=== PATIENT | female | born 1985 | race Caucasian/White ===

== ENCOUNTER 2016-03-27 16:30 | Emergency (ER) | payer MEDICAID, OTHER ==
[~2016-03-27] VITALS: Ht 165.1 cm; Wt 75.0 kg
[~2016-03-27 16:30] MED LIST: AMIT10 PO; BUSP5TAB3 PO; CYCL-36 PO; NAPR-576 PO
[2016-03-27 16:32] VITALS: BP 142/69; PULSE 101; RESP 14; TEMP 97.6; O2SAT 98
[2016-03-27] MEDS ORDERED: SODIUM CHLOR 0.9% 1000 ML INJ 1,000 ML IV SCH (18:38)
[2016-03-27] MEDS ORDERED: ONDANSETRON HCL 4 MG/2 ML VIAL IVP ONE (18:45)
[2016-03-27] MEDS ORDERED: SODIUM CHLORIDE 0.9% FLUSH 5 ML FLUSH IVF PRN (18:45)
--- NOTE | 2016-03-27 18:47 | PD ---
HPI Chief Complaint: Abdominal Pain Time Seen by Provider: 18:47 Travel History International Travel<30 days: No Contact w/Intl Traveler<30days: No Traveled to known affect area: No History of Present Illness HPI 31-year-old female with history of cyclic vomiting, followed by psychiatry at the [facility] presents today for evaluation of vomiting and abdominal pain since last evening. Patient states that this is an exacerbation of her cyclic vomiting. She reports no recent illnesses, fever, or chills. She states she does have chills sometimes associated with vomiting. No diarrhea. No chest pain or tightness. She has no other symptoms to report. PFSH Past Medical History Hx Anticoagulant Therapy: No Asthma: No Blood Disorders: No Anxiety: Yes Depression: Yes Heart Rhythm Problems: No Cancer: No Cardiovascular Problems: No High Cholesterol: No Chemotherapy: No Chest Pain: No Congestive Heart Failure: No COPD: No Cerebrovascular Accident: No Diabetes: No Diminished Hearing: No Endocrine: No Gastrointestinal Disorders: Yes (CYCLIC VOMTING SYNDROME 2013. ) GERD: Yes Genitourinary: No Hypertension: No Immune Disorder: No Implanted Vascular Access Dvce: No Insomnia: Yes Musculoskeletal: Yes Neurologic: No Psychiatric: Yes (ptsd) Reproductive: No Respiratory: No Immunizations Current: No Sleep Apnea: No Thyroid Disease: No ?: Not Tubal Ligation: Yes Past Surgical History Body Medical Devices: essure Cholecystectomy: Yes Gynecologic Surgery: Yes (OVARIAN CYST REMOVAL, ABLATION) Hysterectomy: Yes (-2015) Tonsillectomy: Yes Other Surgery: Yes (gallbladder removal, tubal ligation) Social History Alcohol Use: No Tobacco Use: No Substance Use: No Allergies-Medications (Allergen,Severity, Reaction): Coded Allergies: Bactrim (Verified Allergy, Severe, SWELLING, RASH, 03/27/16) Penicillin (Verified Allergy, Intermediate, RASH, 03/27/16) Vicodin (Verified Allergy, Intermediate, RASH, 03/27/16) Compazine (Verified Adverse Reaction, Intermediate, 03/27/16) Reported Meds & Prescriptions Reported Meds & Active Scripts Active Review of Systems Except as stated in HPI: all other systems reviewed are Neg Physical Exam Narrative GENERAL: Well-nourished female patient, lying in bed in no acute distress SKIN: Warm and dry. HEAD: Atraumatic. Normocephalic. EYES: Pupils equal and round. No scleral icterus. No injection or drainage. ENT: No nasal bleeding or discharge. Mucous membranes pink and moist. NECK: Trachea midline. No JVD. CARDIOVASCULAR: Elevated rate and rhythm. No murmur appreciated. RESPIRATORY: No accessory muscle use. Clear to auscultation. Breath sounds equal bilaterally. GASTROINTESTINAL: Abdomen soft, nondistended. Epigastric tenderness to palpation Hepatic and splenic margins not palpable. MUSCULOSKELETAL: No obvious deformities. No clubbing. No cyanosis. No edema. NEUROLOGICAL: Awake and alert. No obvious cranial nerve deficits. Motor grossly within normal limits. Normal speech. Data Data Last Documented VS Vital Signs Date Time Temp Pulse Resp B/P Pulse Ox O2 Delivery O2 Flow Rate FiO2 03/27/16 16:32 97.6 101 14 142/69 98 Room Air Orders Complete Blood Count With Diff (03/27/16 18:38) Comprehensive Metabolic Panel (03/27/16 18:38) Lipase (03/27/16 18:38) Prothrombin Time / Inr (Pt) (03/27/16 18:38) Act Partial Throm Time (Ptt) (03/27/16 18:38) Urinalysis - C+S If Indicated (03/27/16 18:38) Iv Access Insert/Monitor (03/27/16 18:38) Ondansetron Inj (Zofran Inj) (03/27/16 18:45) Sodium Chlor 0.9% 1000 Ml Inj (Ns 1000 M (03/27/16 18:38) Sodium Chloride 0.9% Flush (Ns Flush) (03/27/16 18:45) Ed Urine Pregnancytest Poc (03/27/16 18:38) Metoclopramide Inj (Reglan Inj) (03/27/16 19:00) Diphenhydramine Inj (Benadryl Inj) (03/27/16 19:00) Cath For Specimen (03/27/16 18:54) Labs Laboratory Tests Test 03/27/16 19:15 White Blood Count 22.1 TH/MM3 Red Blood Count 4.39 MIL/MM3 Hemoglobin 13.8 GM/DL Hematocrit 39.8 % Mean Corpuscular Volume 90.6 FL Mean Corpuscular Hemoglobin 31.5 PG Mean Corpuscular Hemoglobin 34.8 % Concent Red Cell Distribution Width 13.1 % Platelet Count 315 TH/MM3 Mean Platelet Volume 8.1 FL Neutrophils (%) (Auto) 91.3 % Lymphocytes (%) (Auto) 5.1 % Monocytes (%) (Auto) 3.5 % Eosinophils (%) (Auto) 0.0 % Basophils (%) (Auto) 0.1 % Neutrophils # (Auto) 20.2 TH/MM3 Lymphocytes # (Auto) 1.1 TH/MM3 Monocytes # (Auto) 0.8 TH/MM3 Eosinophils # (Auto) 0.0 TH/MM3 Basophils # (Auto) 0.0 TH/MM3 CBC Comment DIFF FINAL Differential Comment Prothrombin Time 10.9 SEC Prothromb Time International 1.0 RATIO Ratio Activated Partial 23.8 SEC Thromboplast Time Sodium Level 137 MEQ/L Potassium Level 3.8 MEQ/L Chloride Level 103 MEQ/L Carbon Dioxide Level 25.5 MEQ/L Anion Gap 9 MEQ/L Blood Urea Nitrogen 12 MG/DL Creatinine 0.89 MG/DL Estimat Glomerular Filtration 74 ML/MIN Rate Random Glucose 154 MG/DL Calcium Level 8.5 MG/DL Total Bilirubin 0.4 MG/DL Aspartate Amino Transf 11 U/L (AST/SGOT) Alanine Aminotransferase 24 U/L (ALT/SGPT) Alkaline Phosphatase 60 U/L Total Protein 8.1 GM/DL Albumin 4.3 GM/DL Lipase 56 U/L [facility] Medical Decision Making Medical Screen Exam Complete: Yes Emergency Medical Condition: Yes Medical Record Reviewed: Yes Differential Diagnosis Cyclic vomiting versus gastritis versus gastroparesis Narrative Course 31-year-old female presents to the emergency department for evaluation. Patient appears overall well and without distress. She does have a slightly elevated heart rate and epigastric tenderness to palpation. This would be consistent with cyclic vomiting. Patient is given IV normal saline bolus, Zofran, Reglan, and Benadryl here in the emergency department in triage. Lab work is ordered. 2020 following medication administration, the patient has not been vomiting here in the triage area. CBC is with leukocytosis of 22,000 however this is likely secondary to vomiting. CMP and lipase are without acute concern. Urinalysis not yet been collected. I discussed with the patient the importance of following up outpatient with her psychiatrist in the patient begins to tell me that her neck and back hurts and she needs something additional. She requests Ativan and/or Dilaudid by name. She states that she typically gets these in the emergency department. Upon review of her chart she has been giving morphine, Dilaudid, or Ativan when she has presented with these similar symptoms. Been in triage and on a monitor, the patient will not begin these medications. She will be transferred to a medical bed where care will be assumed by that medical provider and further intervention and disposition determined. Condition: Stable MelizaKaciRamyadaniel INIGUEZ Mar 27, 2016 18:47
[2016-03-27] MEDS ORDERED: diphenhydrAMINE HCL 50 MG/ML VIAL IV PUSH ONE (19:00)
[2016-03-27] MEDS ORDERED: METOCLOPRAMIDE HCL 10 MG/2 ML VIAL IV PUSH ONE (19:00)
[2016-03-27 19:38] LABS: AUTOMATED NEUTROPHIL # 20.2 TH/MM3 (1.8-7.7); BASOPHIL % 0.1 % (0.0-2.0); HEMATOCRIT 39.8 % (35.0-46.0); HEMO FLAGS DIFF FINAL; LYMPH % 5.1 % (9.0-44.0); LYMPHOCYTE # 1.1 TH/MM3 (1.0-4.8); MEAN CELL VOLUME 90.6 FL (80.0-100.0); MEAN CORPUSCULAR HEMOGLOBIN 31.5 PG (27.0-34.0); MEAN CORPUSCULAR HGB CONC 34.8 % (32.0-36.0); MONO % 3.5 % (0.0-8.0); NEUT % 91.3 % (16.0-70.0); PLATELET COUNT 315 TH/MM3 (150-450); RED BLOOD COUNT 4.39 MIL/MM3 (4.00-5.30); RED CELL DISTRIBUTION WIDTH 13.1 % (11.6-17.2); WHITE BLOOD COUNT 22.1 TH/MM3 (4.0-11.0)
[2016-03-27 19:48] LABS: APTT (PATIENT) 23.8 SEC (24.3-30.1); PROTHROMBIN TIME - PATIENT 10.9 SEC (9.8-11.6)
[2016-03-27 20:02] LABS: ANION GAP 9 MEQ/L (5-15); AST (GOT) 11 U/L (15-37); BICARBONATE 25.5 MEQ/L (21.0-32.0); BLOOD UREA NITROGEN 12 MG/DL (7-18); CHLORIDE 103 MEQ/L (98-107); GLOMERULAR FILTRATION RATE 74 ML/MIN (>89); POTASSIUM 3.8 MEQ/L (3.5-5.1); SODIUM (NA) 137 MEQ/L (136-145)
[2016-03-27 20:08] LABS: ALKALINE PHOSPHATASE 60 U/L (45-117); ALT (GPT) 24 U/L (10-53); TOTAL BILIRUBIN ADULT 0.4 MG/DL (0.2-1.0)
[2016-03-27 21:27] LABS: BACTERIA, URINE RARE /hpf; BLOOD, URINE SMALL (NEG); COMMENT (UR) CULT NOT INDICATED; CULTURE IF INDICATED CULT NOT INDICATED; GLUCOSE,URINE 300 mg/dL (NEG); HYALINE CAST, URINE 1 /lpf (RARE); KETONE, URINE 40 mg/dL (NEG); MUCUS URINE MANY /lpf (OCC); NITRITE,URINE NEG (NEG); SQUAMOUS EPITHELIAL CELL URINE 3 /hpf (0-5); URINE COLOR YELLOW (YELLW/STRAW)
[2016-03-27] MEDS ORDERED: KETOROLAC TROMETHAMINE 30 MG/ML (IVP) VIAL IV PUSH ONE (22:15)
[2016-03-27] MEDS ORDERED: ONDANSETRON HCL 4 MG/2 ML VIAL IV PUSH ONE (22:15)
--- NOTE | 2016-03-27 22:15 | PD ---
Data Data Last Documented VS Vital Signs Date Time Temp Pulse Resp B/P Pulse Ox O2 Delivery O2 Flow Rate FiO2 03/27/16 16:32 97.6 101 14 142/69 98 Room Air Orders Complete Blood Count With Diff (03/27/16 18:38) Comprehensive Metabolic Panel (03/27/16 18:38) Lipase (03/27/16 18:38) Prothrombin Time / Inr (Pt) (03/27/16 18:38) Act Partial Throm Time (Ptt) (03/27/16 18:38) Urinalysis - C+S If Indicated (03/27/16 18:38) Iv Access Insert/Monitor (03/27/16 18:38) Ondansetron Inj (Zofran Inj) (03/27/16 18:45) Sodium Chlor 0.9% 1000 Ml Inj (Ns 1000 M (03/27/16 18:38) Sodium Chloride 0.9% Flush (Ns Flush) (03/27/16 18:45) Ed Urine Pregnancytest Poc (03/27/16 18:38) Metoclopramide Inj (Reglan Inj) (03/27/16 19:00) Diphenhydramine Inj (Benadryl Inj) (03/27/16 19:00) Cath For Specimen (03/27/16 18:54) Ct Abd/Pel W Iv Contrast(Rout) (03/27/16 ) Ketorolac Inj (Toradol Inj) (03/27/16 22:15) Ondansetron Inj (Zofran Inj) (03/27/16 22:15) Iohexol 350 Inj (Omnipaque 350 Inj) (03/27/16 23:23) Lorazepam Inj (Ativan Inj) (03/28/16 00:15) Lorazepam Inj (Ativan Inj) (03/28/16 00:15) Labs Laboratory Tests Test 03/27/16 03/27/16 19:15 21:00 White Blood Count 22.1 TH/MM3 Red Blood Count 4.39 MIL/MM3 Hemoglobin 13.8 GM/DL Hematocrit 39.8 % Mean Corpuscular Volume 90.6 FL Mean Corpuscular Hemoglobin 31.5 PG Mean Corpuscular Hemoglobin 34.8 % Concent Red Cell Distribution Width 13.1 % Platelet Count 315 TH/MM3 Mean Platelet Volume 8.1 FL Neutrophils (%) (Auto) 91.3 % Lymphocytes (%) (Auto) 5.1 % Monocytes (%) (Auto) 3.5 % Eosinophils (%) (Auto) 0.0 % Basophils (%) (Auto) 0.1 % Neutrophils # (Auto) 20.2 TH/MM3 Lymphocytes # (Auto) 1.1 TH/MM3 Monocytes # (Auto) 0.8 TH/MM3 Eosinophils # (Auto) 0.0 TH/MM3 Basophils # (Auto) 0.0 TH/MM3 CBC Comment DIFF FINAL Differential Comment Prothrombin Time 10.9 SEC Prothromb Time International 1.0 RATIO Ratio Activated Partial 23.8 SEC Thromboplast Time Sodium Level 137 MEQ/L Potassium Level 3.8 MEQ/L Chloride Level 103 MEQ/L Carbon Dioxide Level 25.5 MEQ/L Anion Gap 9 MEQ/L Blood Urea Nitrogen 12 MG/DL Creatinine 0.89 MG/DL Estimat Glomerular Filtration 74 ML/MIN Rate Random Glucose 154 MG/DL Calcium Level 8.5 MG/DL Total Bilirubin 0.4 MG/DL Aspartate Amino Transf 11 U/L (AST/SGOT) Alanine Aminotransferase 24 U/L (ALT/SGPT) Alkaline Phosphatase 60 U/L Total Protein 8.1 GM/DL Albumin 4.3 GM/DL Lipase 56 U/L Urine Color YELLOW Urine Turbidity CLEAR Urine pH 7.0 Urine Specific [place] 1.023 Urine Protein 30 mg/dL Urine Glucose (UA) 300 mg/dL Urine Ketones 40 mg/dL Urine Occult Blood SMALL Urine Nitrite NEG Urine Bilirubin NEG Urine Urobilinogen LESS THAN 2.0 MG/DL Urine Leukocyte Esterase NEG Urine RBC 20 /hpf Urine WBC 1 /hpf Urine Squamous Epithelial 3 /hpf Cells Urine Bacteria RARE /hpf Urine Hyaline Casts 1 /lpf Urine Mucus MANY /lpf Microscopic Urinalysis Comment CULT NOT INDICATED MDM Supervised Visit with EUN: Yes Narrative Course Patient roomed in ED. Continues to request narcotics for pain but she appears comfortable and is sleeping soundly. She has a benign abdomen exam. ELevated WBC indicates CT examination which is negative. Patient revisited and again, sleeping, appears comfortable. States nauseated but has not had any emesis nor wretching in ED. SHe is given ativan. Opiates are not indicated given that she can sleep through pain. Discussed need to follow up with her regular providers. Diagnosis Primary Impression: Abdominal pain Qualified Code: R10.84 - Generalized abdominal pain Disposition: 01 DISCHARGE HOME Condition: Stable Brody Gonzales MD Mar 27, 2016 22:15
[2016-03-27] MEDS ORDERED: IOHEXOL 350 MG/ML 10 ML VIAL (for RAD DIAG) IV ONE (23:23)
--- NOTE | 2016-03-27 23:54 | RADRPT ---
EXAM DATE/TIME: 03/27/2016 23:15 [facility] COMPARISON: CT ABDOMEN & PELVIS W CONTRAST, March 02, 2015, 13:04. INDICATIONS : Diffused abdominal pain along with nausea for one day. IV CONTRAST: 90 cc Omnipaque 350 (iohexol) IV ORAL CONTRAST: No oral contrast ingested. RADIATION DOSE: 7.29 CTDIvol (mGy) MEDICAL HISTORY : None SURGICAL HISTORY : Hysterectomy. Hysterectomy. ENCOUNTER: Initial ACUITY: 1 day PAIN SCALE: 9/10 LOCATION: abdomen TECHNIQUE: Volumetric scanning of the abdomen and pelvis was performed. Using automated exposure control and ad justment of the mA and/or kV according to patient size, radiation dose was kept as low as reasonably achievable to obtain optimal diagnostic quality images. FINDINGS: LOWER LUNGS: The visualized lower lungs are clear. LIVER: Homogeneous density without lesion. There is no dilation of the biliary tree. Gallbladder surgically absent.. SPLEEN: Normal size without lesion. PANCREAS: Within normal limits. KIDNEYS: Normal in size and shape. There is no mass, stone or hydronephrosis. ADRENAL GLANDS: Within normal limits. VASCULAR: There is no aortic aneurysm. BOWEL/MESENTERY: The stomach, small bowel, and colon demonstrate no acute abnormality. There is no free intraperitone al air or fluid. ABDOMINAL WALL: Within normal limits. RETROPERITONEUM: There is no lymphadenopathy. BLADDER: No wall thickening or mass. REPRODUCTIVE: Uterus is surgically absent. Small volume of nonloculated free pelvic fluid, nonspecific. INGUINAL: There is no lymphadenopathy or hernia. MUSCULOSKELETAL: Within normal limits for patient age. CONCLUSION: Nonloculated pelvic fluid. Otherwise unremarkable Al Ledezma MD on March 27, 2016 at 23:45 Board Certified Radiologist. This report was verified electronically.
[2016-03-28] MEDS ORDERED: LORazepam 2 MG/ML VIAL IV PUSH ONE (00:15)
[2016-03-28] MEDS ORDERED: LORazepam 2 MG/ML VIAL IM ONE (00:15)
[2016-03-29] MEDS ORDERED: BUSP5TAB PO (11:27)
[2016-03-29] MEDS ORDERED: ZOFR4TAB PO (11:27)
[2016-03-29] MEDS ORDERED: AMIT10TA6 PO (11:27)
[2016-03-29] MEDS ORDERED: AMIT50TA3 PO (18:25)
[2016-03-29] MEDS ORDERED: CYCL1TAB29 PO (19:41)
== END 2016-03-28 00:31 | disposition home or self-care (01) ==
LOC: NETRI 16:30 → NEPA 03-28 00:31
DX: R10.84 Generalized abdominal pain (principal); G43.A0 Cyclical vomiting, in migraine, not intractable; K21.9 Gastro-esophageal reflux disease without esophagitis
CPT/HCPCS: 74177; 80053; 81001; 83690; 84703; 85025; 85610; 85730; 96361; 96372; 96374; 96375; 96376; 99284; J1200; J1885; J2060; J2405; J2765; J7030; Q9967

== ENCOUNTER 2016-03-29 11:00 | Observation (INO) | payer MEDICAID, OTHER ==
[2016-03-29] VITALS (10 sets, daily range): BP systolic 104–135; BP diastolic 56–81; PULSE 73–99; RESP 16–18; TEMP 97.9–100.5; O2SAT 96–100
[~2016-03-29] VITALS: Ht 157.5 cm; Wt 70.2 kg
[2016-03-29] MEDS ORDERED: SODIUM CHLOR 0.9% 1000 ML INJ 1,000 ML IV SCH (11:22)
[2016-03-29] MEDS ORDERED: BUSP5TAB PO (11:27)
[2016-03-29] MEDS ORDERED: ZOFR4TAB PO (11:27)
[2016-03-29] MEDS ORDERED: AMIT10TA6 PO (11:27)
[2016-03-29] MEDS ORDERED: KETOROLAC TROMETHAMINE 60 MG/2 ML (IM) VIAL IM ONE (11:30)
[2016-03-29] MEDS ORDERED: PROMETHAZINE INJ 25 MG/ML VIAL IM ONE (11:30)
[2016-03-29] MEDS ORDERED: diphenhydrAMINE HCL 50 MG/ML VIAL IV PUSH ONE (11:30)
[2016-03-29] MEDS ORDERED: SODIUM CHLORIDE 0.9% FLUSH 5 ML FLUSH IVF PRN (11:30)
[2016-03-29 11:40] LABS: AUTOMATED NEUTROPHIL # 12.8 TH/MM3 (1.8-7.7); BASOPHIL % 0.3 % (0.0-2.0); EOSINOPHIL % 0.1 % (0.0-4.0); HEMATOCRIT 40.2 % (35.0-46.0); HEMO FLAGS DIFF FINAL; LYMPH % 9.1 % (9.0-44.0); LYMPHOCYTE # 1.3 TH/MM3 (1.0-4.8); MEAN CELL VOLUME 90.8 FL (80.0-100.0); MEAN CORPUSCULAR HEMOGLOBIN 30.9 PG (27.0-34.0); MONO % 2.2 % (0.0-8.0); NEUT % 88.3 % (16.0-70.0); PLATELET COUNT 310 TH/MM3 (150-450); RED BLOOD COUNT 4.43 MIL/MM3 (4.00-5.30); RED CELL DISTRIBUTION WIDTH 12.3 % (11.6-17.2); WHITE BLOOD COUNT 14.4 TH/MM3 (4.0-11.0)
[2016-03-29 11:47] LABS: CHLORIDE 105 MEQ/L (98-107); POTASSIUM 3.7 MEQ/L (3.5-5.1); SODIUM (NA) 141 MEQ/L (136-145)
[2016-03-29 11:51] LABS: ANION GAP 8 MEQ/L (5-15); BICARBONATE 27.9 MEQ/L (21.0-32.0); BLOOD UREA NITROGEN 19 MG/DL (7-18)
[2016-03-29 11:54] LABS: ALT (GPT) 22 U/L (10-53); AST (GOT) 16 U/L (15-37); GLOMERULAR FILTRATION RATE 76 ML/MIN (>89)
[2016-03-29 11:56] LABS: TOTAL BILIRUBIN ADULT 0.5 MG/DL (0.2-1.0)
[2016-03-29 11:57] LABS: ALKALINE PHOSPHATASE 52 U/L (45-117)
[2016-03-29] MEDS ORDERED: METOCLOPRAMIDE HCL 10 MG/2 ML VIAL IV PUSH ONE (12:30)
--- NOTE | 2016-03-29 13:26 | PD ---
HPI Chief Complaint: Abdominal Pain Time Seen by Provider: 11:19 Travel History International Travel<30 days: No Contact w/Intl Traveler<30days: No Traveled to known affect area: No History of Present Illness HPI Patient 31-year-old female presents emergency department for evaluation of nausea and vomiting. This is her second interaction with me this week. Patient has a history of gastroparesis and cyclical vomiting syndrome. She has been trying to follow-up with her primary care physician with the earliest appointment is for 2 weeks. Denies any fever. Does also endorses loose stools. PFSH Past Medical History Hx Anticoagulant Therapy: No Asthma: No Blood Disorders: No Anxiety: Yes Depression: Yes Heart Rhythm Problems: No Cancer: No Cardiovascular Problems: No High Cholesterol: No Chemotherapy: No Chest Pain: No Congestive Heart Failure: No COPD: No Cerebrovascular Accident: No Diabetes: No Diminished Hearing: No Endocrine: No Gastrointestinal Disorders: Yes (CYCLIC VOMTING SYNDROME 2013, GASTROPARESIS) GERD: Yes Genitourinary: No Hypertension: No Immune Disorder: No Implanted Vascular Access Dvce: No Insomnia: Yes Musculoskeletal: Yes Neurologic: No Psychiatric: Yes (ptsd) Reproductive: No Respiratory: No Immunizations Current: No Sleep Apnea: No Thyroid Disease: No Tetanus Vaccination: Unknown Influenza Vaccination: Yes ?: Not Tubal Ligation: Yes Past Surgical History Body Medical Devices: essure Cholecystectomy: Yes Gynecologic Surgery: Yes (OVARIAN CYST REMOVAL, ABLATION) Hysterectomy: Yes Tonsillectomy: Yes Other Surgery: Yes (gallbladder removal, tubal ligation) Social History Alcohol Use: No Tobacco Use: No Substance Use: Yes (MARIJUANA) Allergies-Medications (Allergen,Severity, Reaction): Coded Allergies: Bactrim (Verified Allergy, Severe, SWELLING, RASH, 03/29/16) Penicillin (Verified Allergy, Intermediate, RASH, 03/29/16) Vicodin (Verified Allergy, Intermediate, RASH, 03/29/16) Compazine (Verified Adverse Reaction, Intermediate, 03/29/16) Reported Meds & Prescriptions Reported Meds & Active Scripts Active Reported Flexeril (Cyclobenzaprine HCl) 10 Mg Tab 10 Mg PO BID Amitriptyline (Amitriptyline HCl) 50 Mg Tab 100 Mg PO HS Buspirone (Buspirone HCl) 5 Mg Tab 15 Mg PO BID Zofran (Ondansetron HCl) 4 Mg Tab 4 Mg PO Q6HR PRN Physical Exam Narrative GENERAL: Well-developed well-nourished no apparent distress SKIN: Warm and dry. HEAD: Atraumatic. Normocephalic. EYES: Pupils equal and round. No scleral icterus. No injection or drainage. ENT: No nasal bleeding or discharge. Mucous membranes pink and moist. NECK: Trachea midline. No JVD. CARDIOVASCULAR: Regular rate and rhythm. No murmur appreciated. RESPIRATORY: No accessory muscle use. Clear to auscultation. Breath sounds equal bilaterally. GASTROINTESTINAL: Abdomen soft, non-tender, nondistended. Hepatic and splenic margins not palpable. MUSCULOSKELETAL: No obvious deformities. No clubbing. No cyanosis. No edema. NEUROLOGICAL: Awake and alert. No obvious cranial nerve deficits. Motor grossly within normal limits. Normal speech. PSYCHIATRIC: Appropriate mood and affect; insight and judgment normal. Data Data Last Documented VS Vital Signs Date Time Temp Pulse Resp B/P Pulse Ox O2 Delivery O2 Flow Rate FiO2 03/29/16 12:54 16 03/29/16 12:39 84 121/67 100 Room Air 03/29/16 11:11 97.9 Orders Complete Blood Count With Diff (03/29/16 11:22) Comprehensive Metabolic Panel (03/29/16 11:22) Lactic Acid (03/29/16 11:22) Iv Access Insert/Monitor (03/29/16 11:22) Ecg Monitoring (03/29/16 11:22) Oximetry (03/29/16 11:22) Sodium Chlor 0.9% 1000 Ml Inj (Ns 1000 M (03/29/16 11:22) Sodium Chloride 0.9% Flush (Ns Flush) (03/29/16 11:30) Ketorolac Inj (Toradol Inj) (03/29/16 11:30) Promethazine Inj (Phenergan Inj) (03/29/16 11:30) Diphenhydramine Inj (Benadryl Inj) (03/29/16 11:30) Metoclopramide Inj (Reglan Inj) (03/29/16 12:30) Metoclopramide Inj (Reglan Inj) (03/29/16 16:00) Place In Observation (03/29/16 ) Vital Signs (Adult) Q4H (03/29/16 13:35) Activity Oob With Assistance (03/29/16 13:35) Diet Clear Liquid (03/29/16 Lunch) Sodium Chlor 0.9% 1000 Ml Inj (Ns 1000 M (03/29/16 13:35) Sodium Chloride 0.9% Flush (Ns Flush) (03/29/16 13:45) Sodium Chloride 0.9% Flush (Ns Flush) (03/29/16 21:00) Acetaminophen (Tylenol) (03/29/16 13:45) Ondansetron Inj (Zofran Inj) (03/29/16 13:45) Magnesium Hydroxide Liq (Milk Of Magnesi (03/29/16 13:45) Basic Metabolic Panel (Bmp) (03/30/16 06:00) Complete Blood Count With Diff (03/30/16 06:00) Scd Bilateral/Knee High BYRON.BID (03/29/16 13:35) Carlos Bilateral/Knee High BYRON.QSHIFT (03/29/16 13:35) Naloxone Inj (Narcan Inj) (03/29/16 13:45) Admit Order (Ed Use Only) (03/29/16 ) Labs Laboratory Tests Test 03/29/16 11:32 White Blood Count 14.4 TH/MM3 Red Blood Count 4.43 MIL/MM3 Hemoglobin 13.7 GM/DL Hematocrit 40.2 % Mean Corpuscular Volume 90.8 FL Mean Corpuscular Hemoglobin 30.9 PG Mean Corpuscular Hemoglobin 34.0 % Concent Red Cell Distribution Width 12.3 % Platelet Count 310 TH/MM3 Mean Platelet Volume 8.0 FL Neutrophils (%) (Auto) 88.3 % Lymphocytes (%) (Auto) 9.1 % Monocytes (%) (Auto) 2.2 % Eosinophils (%) (Auto) 0.1 % Basophils (%) (Auto) 0.3 % Neutrophils # (Auto) 12.8 TH/MM3 Lymphocytes # (Auto) 1.3 TH/MM3 Monocytes # (Auto) 0.3 TH/MM3 Eosinophils # (Auto) 0.0 TH/MM3 Basophils # (Auto) 0.0 TH/MM3 CBC Comment DIFF FINAL Differential Comment Sodium Level 141 MEQ/L Potassium Level 3.7 MEQ/L Chloride Level 105 MEQ/L Carbon Dioxide Level 27.9 MEQ/L Anion Gap 8 MEQ/L Blood Urea Nitrogen 19 MG/DL Creatinine 0.87 MG/DL Estimat Glomerular Filtration 76 ML/MIN Rate Random Glucose 154 MG/DL Lactic Acid Level 1.7 mmol/L Calcium Level 8.5 MG/DL Total Bilirubin 0.5 MG/DL Aspartate Amino Transf 16 U/L (AST/SGOT) Alanine Aminotransferase 22 U/L (ALT/SGPT) Alkaline Phosphatase 52 U/L Total Protein 7.7 GM/DL Albumin 4.2 GM/DL MDM Medical Decision Making Medical Screen Exam Complete: Yes Emergency Medical Condition: Yes Differential Diagnosis Chronic abdominal pain, gastritis, gastroparesis, cyclical vomiting syndrome. Narrative Course Patient's 31-year-old female presents to emergency department with nausea vomiting and abdominal cramping. Patient states she has a history of gastroparesis as well as cyclical vomiting symptoms. She was seen by me 3 days ago had an elevated white blood cell count 22,[address] scan was performed that time which was negative. Today her white blood cell count is down to 14. She states the only thing that works for her is Ativan and Dilaudid. She did drive herself here to the emergency department today contraindicating their use here not to mention that Dilaudid and other opiates will worsen gastroparesis. She does have normal active bowel sounds. She was given Reglan Benadryl Phenergan Zofran and fluids and still is having some mild dry heaves. Discussed with her that with her chronic conditions we could consider admitting her to the hospital for additional fluids. She was informed that Dilaudid will continue to be contraindicated and she understands this. Diagnosis Primary Impression: Intractable nausea and vomiting Qualified Code: G43.A1 - Intractable cyclical vomiting with nausea Admitting Information Admitting Physician Requests: Observation Condition: Stable Brody Gonzales MD Mar 29, 2016 13:26
[2016-03-29] MEDS ORDERED: ACETAMINOPHEN 325 MG TAB PO PRN (13:45)
[2016-03-29] MEDS ORDERED: MAGNESIUM HYDROXIDE SUSP 30 ML CUP PO PRN (13:45)
[2016-03-29] MEDS ORDERED: NALOXONE HCL 0.4 MG/ML AMP IV PRN (13:45)
[2016-03-29] MEDS ORDERED: SODIUM CHLORIDE 0.9% FLUSH 5 ML FLUSH FLUSH PRN (13:45)
[2016-03-29] MEDS: SODIUM CHLOR 0.9% 1000 ML INJ 1,000 ML IV SCH ×2 (14:01→23:25)
[2016-03-29] MEDS: METOCLOPRAMIDE HCL 10 MG/2 ML VIAL IV SCH ×2 (15:42→23:25)
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
[2016-03-29] MEDS ORDERED: AMIT50TA3 PO (18:25)
[2016-03-29] MEDS ORDERED: diphenhydrAMINE HCL 25 MG CAP PO PRN (18:45)
[2016-03-29] MEDS: ONDANSETRON HCL 4 MG/2 ML VIAL IVP PRN (19:06)
[2016-03-29] MEDS: KETOROLAC TROMETHAMINE 60 MG/2 ML (IM) VIAL IM PRN (19:06)
[2016-03-29] MEDS ORDERED: CYCL1TAB29 PO (19:41)
[2016-03-29] MEDS: SODIUM CHLORIDE 0.9% FLUSH 5 ML FLUSH FLUSH SCH (23:25)
[2016-03-30] VITALS: BP 106/64; PULSE 88; RESP 18; TEMP 98.5; O2SAT 90
[2016-03-30] MEDS: ONDANSETRON HCL 4 MG/2 ML VIAL IVP PRN (00:27)
[2016-03-30] MEDS: KETOROLAC TROMETHAMINE 60 MG/2 ML (IM) VIAL IM PRN (00:29)
[2016-03-30] MEDS: SODIUM CHLOR 0.9% 1000 ML INJ 1,000 ML IV SCH (04:36)
[2016-03-30] MEDS: METOCLOPRAMIDE HCL 10 MG/2 ML VIAL IV SCH ×2 (05:53→10:16)
[2016-03-30 06:15] LABS: AUTOMATED NEUTROPHIL # 10.4 TH/MM3 (1.8-7.7); BASOPHIL % 0.2 % (0.0-2.0); EOSINOPHIL # 0.1 TH/MM3 (0-0.4); EOSINOPHIL % 0.4 % (0.0-4.0); HEMATOCRIT 38.8 % (35.0-46.0); LYMPH % 18.7 % (9.0-44.0); LYMPHOCYTE # 2.6 TH/MM3 (1.0-4.8); MEAN CELL VOLUME 91.4 FL (80.0-100.0); MEAN CORPUSCULAR HEMOGLOBIN 31.5 PG (27.0-34.0); MEAN CORPUSCULAR HGB CONC 34.4 % (32.0-36.0); MONO % 6.5 % (0.0-8.0); NEUT % 74.2 % (16.0-70.0); PLATELET COUNT 262 TH/MM3 (150-450); RED BLOOD COUNT 4.24 MIL/MM3 (4.00-5.30); RED CELL DISTRIBUTION WIDTH 12.3 % (11.6-17.2)
[2016-03-30 06:17] LABS: HEMO FLAGS DIFF FINAL
[2016-03-30 06:21] LABS: POTASSIUM 3.1 MEQ/L (3.5-5.1)
[2016-03-30 06:24] LABS: BICARBONATE 28.8 MEQ/L (21.0-32.0)
[2016-03-30 08:00] VITALS: BP 116/71; PULSE 80; RESP 18; TEMP 98.9; O2SAT 97
[2016-03-30] MEDS ORDERED: busPIRone HCL 5 MG TAB PO SCH (09:00)
--- NOTE | 2016-03-30 09:55 | HHI.PR ---
Subjective Remarks Patient seen and examined today with Dr. Pack. Patient states that she is feeling much better. Patient wants to go home. Objective Vitals Vital Signs Date Time Temp Pulse Resp B/P Pulse Ox O2 Delivery O2 Flow Rate FiO2 03/30/16 00:00 98.5 88 18 106/64 90 03/29/16 21:09 100.5 73 18 135/81 100 03/29/16 20:21 80 20 107/66 100 03/29/16 19:21 18 03/29/16 19:15 99.5 89 18 123/61 97 Room Air 03/29/16 17:46 16 03/29/16 17:46 98.5 99 16 110/65 97 Room Air 03/29/16 15:56 98.8 03/29/16 15:24 16 03/29/16 15:22 76 16 104/56 96 Room Air 03/29/16 14:02 80 16 113/67 98 Room Air 03/29/16 12:54 16 03/29/16 12:39 84 16 121/67 100 Room Air 03/29/16 12:01 100 Room Air 03/29/16 11:28 18 03/29/16 11:11 97.9 83 18 128/80 100 I/O 03/29/16 03/29/16 03/29/16 03/30/16 03/30/16 03/30/16 07:00 15:00 23:00 07:00 15:00 23:00 Intake Total 990 ml 60 ml 526 ml Balance 990 ml 60 ml 526 ml Intake Oral 60 ml IV Total 990 ml 526 ml # Voids 1 2 5 # Bowel Movements 0 0 Result Diagram: 03/30/16 0510 03/30/16 0510 Objective Remarks GENERAL: Well-developed, well-nourished, in no acute distress. alert and orientated HEENT: Head is normocephalic without any lesions or masses noted. Facial features are symmetric. Eyes: Pextraocular muscles are intact. Conjunctivae were clear. NECK: Supple without any masses. Trachea midline no deviation. No JVD, CARDIAC: Regular rhythm, regular rate. S1/S2 are heard. No murmurs gallops or rubs. LUNGS: Clear to auscultation bilaterally. No wheeze, rhonchi or rales. No use of accessory muscles on inspiration or expiration. ABDOMEN: Soft, nontender. Nondistended. Bowel sounds heard in all 4 quadrants. No organomegaly or masses. Negative rebound, negative guarding EXTREMITIES: No edema, pulses are equal bilaterally. No cyanosis or clubbing NEUROLOGY: Mood and affect appear appropriate. Cranial nerves II through XII grossly intact. Moving all extremities, speech is clear Urinary Catheter: No Vascular Central Line Catheter: No A/P Assessment and Plan Cyclic vomiting syndrome, resolved Continue Zofran as needed for nausea vomiting Reglan 5 mg before meals and at bedtime IV scheduled Continue IV fluids Patient counseled on discontinuation of marijuana Advance diet as tolerated Toradol as needed for pain Leukocytosis, improving Continue monitor CBC Prerenal azotemia, resolved Appears to have chronic kidney disease stage II by review of medical records DVT prevention Sequential compression devices Written by Carlin Longoria PA-C, acting as scribe for Dr. Pack on 03/30/16 at 1000. The documentation accurately reflects the work and decisions performed face-to- face by Dr. Pack on 03/30/16 at 1000. Discharge Planning Discharge home in stable condition Activity: Ad amna. Diet: Regular diet Medications per medication reconciliation Follow-up primary medical doctor in one week Carlin Longoria Mar 30, 2016 09:55
--- NOTE | 2016-03-30 09:57 | HHI.DCPOC ---
Discharge Care Plan Diagnosis: (1) Cyclic vomiting syndrome Goals to Promote Your Health * To prevent worsening of your condition and complications * To maintain your health at the optimal level Directions to Meet Your Goals Take your medications as prescribed Follow your dietary instruction Follow activity as directed Keep your appointments as scheduled Take your immunizations and boosters as scheduled If your symptoms worsen call your PCP, if no PCP go to Urgent Care Center or Emergency Room Smoking is Dangerous to Your Health. Avoid second hand smoke Call the 24-hour hour crisis hotline for domestic abuse at Carlin Longoria Mar 30, 2016 09:57
[2016-03-30] MEDS ORDERED: POTASSIUM CHLORIDE 20 MEQ CONTROLLED RELEASE TAB PO ONE (10:00)
[2016-03-30] MEDS: SODIUM CHLORIDE 0.9% FLUSH 5 ML FLUSH FLUSH SCH (10:17)
[2016-03-30] MEDS ORDERED: AMITRIPTYLINE HCL 50 MG TAB PO SCH (21:00)
== END 2016-03-30 11:00 | disposition home or self-care (01) ==
LOC: PHED 11:00 → PHEDA 13:42 → PHEDH 17:42 → PH3B 20:25
PROVIDERS: ADMIT Family Medicine; ATTEND Family Medicine
DX: G43.A1 Cyclical vomiting, in migraine, intractable (principal); D72.829 Elevated white blood cell count, unspecified; R79.89 Other specified abnormal findings of blood chemistry; K31.84 Gastroparesis; K21.9 Gastro-esophageal reflux disease without esophagitis; G47.00 Insomnia, unspecified; F43.10 Post-traumatic stress disorder, unspecified; Z79.899 Other long term (current) drug therapy; F12.90 Cannabis use, unspecified, uncomplicated
CPT/HCPCS: 80048; 80053; 83605; 85025; 96361; 96372; 96374; 96375; 99284; G0378; J1200; J1885; J2405; J2550; J2765; J7030

== ENCOUNTER 2016-04-02 11:05 | Emergency (ER) | payer MEDICAID, OTHER ==
[~2016-04-02] VITALS: Ht 157.5 cm; Wt 71.5 kg
[~2016-04-02 11:05] MED LIST changes: -AMIT10 PO; +AMIT50TA3 PO; +BUSP5TAB PO; -BUSP5TAB3 PO; -CYCL-36 PO; +CYCL1TAB29 PO; -NAPR-576 PO; +ZOFR4TAB PO
[2016-04-02 11:39] VITALS: BP 133/93; PULSE 111; RESP 16; TEMP 99.6; O2SAT 97
[2016-04-02] MEDS ORDERED: SODIUM CHLOR 0.9% 1000 ML INJ 1,000 ML IV ONE (13:15)
[2016-04-02] MEDS ORDERED: KETOROLAC TROMETHAMINE 30 MG/ML (IVP) VIAL IV PUSH ONE (13:15)
[2016-04-02] MEDS ORDERED: ONDANSETRON HCL 4 MG/2 ML VIAL IV PUSH ONE (13:15)
--- NOTE | 2016-04-02 13:41 | PD ---
HPI Chief Complaint: GI Complaint Time Seen by Provider: 12:57 Travel History International Travel<30 days: No Contact w/Intl Traveler<30days: No Traveled to known affect area: No History of Present Illness HPI 31yo F with PMH of cyclic vomiting syndrome, CKD II, anxiety, depression presents to the ED with c/o persistent vomiting after being discharge on . Pt was admitted 03/29/16-03/30/16 for intractable vomiting. Pt has been here multiple times for this complaint and has chronic pain. Pt still smokes marajuana. Denies any fever, chest pain, sob, focal weakness or numbness. PFSH Past Medical History Hx Anticoagulant Therapy: No Asthma: No Blood Disorders: No Anxiety: Yes Depression: Yes Heart Rhythm Problems: No Cancer: No Cardiovascular Problems: Yes (HYPOTENSION) High Cholesterol: No Chemotherapy: No Chest Pain: No Congestive Heart Failure: No COPD: No Cerebrovascular Accident: No Diabetes: No Diminished Hearing: No Endocrine: No Gastrointestinal Disorders: Yes (CYCLIC VOMTING SYNDROME 2013, GASTROPARESIS) GERD: Yes Genitourinary: Yes Hypertension: No Immune Disorder: No Implanted Vascular Access Dvce: No Insomnia: Yes Musculoskeletal: No Neurologic: Yes Psychiatric: Yes (PTSD) Reproductive: Yes (HX CHLAMYDIA) Respiratory: No Immunizations Current: No Migraines: Yes Sleep Apnea: No Thyroid Disease: No Tetanus Vaccination: Unknown ?: Not Tubal Ligation: Yes Past Surgical History Abdominal Surgery: Yes (CHOLECYSTECTOMY) Body Medical Devices: essure Cardiac Surgery: No Cholecystectomy: Yes Ear Surgery: No Endocrine Surgery: No Eye Surgery: No Genitourinary Surgery: No Gynecologic Surgery: Yes (OVARIAN CYST REMOVAL, ABLATION, HYSTERECTOMY) Hysterectomy: Yes Neurologic Surgery: No Oral Surgery: Yes (T & A) Thoracic Surgery: No Tonsillectomy: Yes Other Surgery: Yes (gallbladder removal, tubal ligation) Social History Alcohol Use: No Tobacco Use: No Substance Use: Yes (MARIJUANA 03/28/16) Allergies-Medications (Allergen,Severity, Reaction): Coded Allergies: Bactrim (Verified Allergy, Severe, SWELLING, RASH, 04/02/16) Penicillin (Verified Allergy, Intermediate, RASH, 04/02/16) Vicodin (Verified Allergy, Intermediate, RASH, 04/02/16) Compazine (Verified Adverse Reaction, Severe, RASH, 04/02/16) Reported Meds & Prescriptions Reported Meds & Active Scripts Active Zofran Odt (Ondansetron Odt) 4 Mg Tab 4 Mg SL Q6HR PRN Reported Flexeril (Cyclobenzaprine HCl) 10 Mg Tab 10 Mg PO BID Amitriptyline (Amitriptyline HCl) 50 Mg Tab 100 Mg PO HS Buspirone (Buspirone HCl) 5 Mg Tab 15 Mg PO BID Review of Systems Except as stated in HPI: all other systems reviewed are Neg Physical Exam Narrative GEN: 31yo F not in acute distress. HEAD: Normocephalic, atraumatic. NECK: No nuchal rigidity. CV: S1, S2. No murmur. Lungs: CTA B/L, equal breath sounds. Abd: soft, NT/ND. No rebound tenderness or guarding. BACK: +Paraspinal ttp thoracic spine right. Ext: No edema, calf tenderness. NEURO: No focal neurologic deficits Data Data Last Documented VS Vital Signs Date Time Temp Pulse Resp B/P Pulse Ox O2 Delivery O2 Flow Rate FiO2 04/02/16 16:10 98 18 147/86 98 Room Air 04/02/16 11:39 99.6 Orders Complete Blood Count With Diff (04/02/16 13:13) Comprehensive Metabolic Panel (04/02/16 13:13) Bhcg Screen Qualitative (04/02/16 13:13) Ondansetron Inj (Zofran Inj) (04/02/16 13:15) Sodium Chlor 0.9% 1000 Ml Inj (Ns 1000 M (04/02/16 13:15) Ketorolac Inj (Toradol Inj) (04/02/16 13:15) Potassium Chlor 20 Meq Premix (Kcl 20 Me (04/02/16 14:15) Magnesium Sulfate 1 Gm Premix (Magnesium (04/02/16 14:15) Diazepam (Valium) (04/02/16 15:15) Potassium Chloride (Kcl) (04/02/16 16:15) Labs Laboratory Tests Test 04/02/16 13:35 White Blood Count 16.9 TH/MM3 Red Blood Count 5.11 MIL/MM3 Hemoglobin 16.0 GM/DL Hematocrit 45.3 % Mean Corpuscular Volume 88.7 FL Mean Corpuscular Hemoglobin 31.4 PG Mean Corpuscular Hemoglobin 35.4 % Concent Red Cell Distribution Width 11.8 % Platelet Count 362 TH/MM3 Mean Platelet Volume 8.2 FL Neutrophils (%) (Auto) 85.1 % Lymphocytes (%) (Auto) 9.0 % Monocytes (%) (Auto) 3.9 % Eosinophils (%) (Auto) 0.1 % Basophils (%) (Auto) 1.9 % Neutrophils # (Auto) 14.4 TH/MM3 Lymphocytes # (Auto) 1.5 TH/MM3 Monocytes # (Auto) 0.7 TH/MM3 Eosinophils # (Auto) 0.0 TH/MM3 Basophils # (Auto) 0.3 TH/MM3 CBC Comment DIFF FINAL Differential Comment Sodium Level 133 MEQ/L Potassium Level 3.1 MEQ/L Chloride Level 91 MEQ/L Carbon Dioxide Level 29.2 MEQ/L Anion Gap 13 MEQ/L Blood Urea Nitrogen 16 MG/DL Creatinine 0.74 MG/DL Estimat Glomerular Filtration 92 ML/MIN Rate Random Glucose 90 MG/DL Calcium Level 8.9 MG/DL Total Bilirubin 0.9 MG/DL Aspartate Amino Transf 19 U/L (AST/SGOT) Alanine Aminotransferase 31 U/L (ALT/SGPT) Alkaline Phosphatase 61 U/L Total Protein 8.3 GM/DL Albumin 4.4 GM/DL Beta HCG, Qualitative LESS THAN 1 MIU/ML MDM Medical Decision Making Medical Screen Exam Complete: Yes Emergency Medical Condition: Yes Interpretation(s) Laboratory Tests Test 04/02/16 13:35 White Blood Count 16.9 TH/MM3 (4.0-11.0) Red Blood Count 5.11 MIL/MM3 (4.00-5.30) Hemoglobin 16.0 GM/DL (11.6-15.3) Hematocrit 45.3 % (35.0-46.0) Mean Corpuscular Volume 88.7 FL (80.0-100.0) Mean Corpuscular Hemoglobin 31.4 PG (27.0-34.0) Mean Corpuscular Hemoglobin 35.4 % Concent (32.0-36.0) Red Cell Distribution Width 11.8 % (11.6-17.2) Platelet Count 362 TH/MM3 (150-450) Mean Platelet Volume 8.2 FL (7.0-11.0) Neutrophils (%) (Auto) 85.1 % (16.0-70.0) Lymphocytes (%) (Auto) 9.0 % (9.0-44.0) Monocytes (%) (Auto) 3.9 % (0.0-8.0) Eosinophils (%) (Auto) 0.1 % (0.0-4.0) Basophils (%) (Auto) 1.9 % (0.0-2.0) Neutrophils # (Auto) 14.4 TH/MM3 (1.8-7.7) Lymphocytes # (Auto) 1.5 TH/MM3 (1.0-4.8) Monocytes # (Auto) 0.7 TH/MM3 (0-0.9) Eosinophils # (Auto) 0.0 TH/MM3 (0-0.4) Basophils # (Auto) 0.3 TH/MM3 (0-0.2) CBC Comment DIFF FINAL Differential Comment Sodium Level 133 MEQ/L (136-145) Potassium Level 3.1 MEQ/L (3.5-5.1) Chloride Level 91 MEQ/L (98-107) Carbon Dioxide Level 29.2 MEQ/L (21.0-32.0) Anion Gap 13 MEQ/L (5-15) Blood Urea Nitrogen 16 MG/DL (7-18) Creatinine 0.74 MG/DL (0.50-1.00) Estimat Glomerular Filtration 92 ML/MIN (>89) Rate Random Glucose 90 MG/DL (74-106) Calcium Level 8.9 MG/DL (8.5-10.1) Total Bilirubin 0.9 MG/DL (0.2-1.0) Aspartate Amino Transf 19 U/L (15-37) (AST/SGOT) Alanine Aminotransferase 31 U/L (10-53) (ALT/SGPT) Alkaline Phosphatase 61 U/L (45-117) Total Protein 8.3 GM/DL (6.4-8.2) Albumin 4.4 GM/DL (3.4-5.0) Beta HCG, Qualitative LESS THAN 1 MIU/ML (0-5) Differential Diagnosis Dehydration vs. electrolyte abnormality vs. malingering Narrative Course 31yo F with cyclic vomiting syndrome here with complaint of vomiting. Labs reviewed, pt does have leukocytosis at 16.9. Pt has had this before and has no abdominal pain or cough. Pain is mainly in the intercostal muscles and denies any fever or cough. K low at 3.1, replaced with 40mEq KCl PO. Pt was started on 20mEq KCl but did not want to wait and finish it. Pt given toradol and NS IVF as well as zofran and magnesium sulfate. Pt also given valium for musculoskeletal pain. Pt reevaluated at bedside and feels better. Pt no longer nauseous and now tolerating PO. Return precautions given. Pt's HR was in the 80s before she was given any medication or IVF. Diagnosis Primary Impression: Cyclic vomiting syndrome Qualified Code: G43.A0 - Non-intractable cyclical vomiting with nausea Patient Instructions: General Instructions Departure Forms: Tests/Procedures Additional Instructions: Please follow up with your PMD in 3-7 days. Return to the ED if symptoms worsen. Med/Other Pt SpecificInfo: Prescription(s) given Scripts Ondansetron Odt (Zofran Odt)4 Mg Tab4 Mg SL Q6HR PRN (Nausea/Vomiting) #10 TAB Ref 0 Prov:Chloe Ge DO 04/02/16 Disposition: 01 DISCHARGE HOME Condition: Stable Chloe Ge DO Apr 02, 2016 13:41
[2016-04-02 13:49] LABS: AUTOMATED NEUTROPHIL # 14.4 TH/MM3 (1.8-7.7); BASOPHIL # 0.3 TH/MM3 (0-0.2); BASOPHIL % 1.9 % (0.0-2.0); EOSINOPHIL % 0.1 % (0.0-4.0); HEMATOCRIT 45.3 % (35.0-46.0); LYMPHOCYTE # 1.5 TH/MM3 (1.0-4.8); MEAN CELL VOLUME 88.7 FL (80.0-100.0); MEAN CORPUSCULAR HEMOGLOBIN 31.4 PG (27.0-34.0); MEAN CORPUSCULAR HGB CONC 35.4 % (32.0-36.0); MONO % 3.9 % (0.0-8.0); NEUT % 85.1 % (16.0-70.0); PLATELET COUNT 362 TH/MM3 (150-450); RED BLOOD COUNT 5.11 MIL/MM3 (4.00-5.30); RED CELL DISTRIBUTION WIDTH 11.8 % (11.6-17.2); WHITE BLOOD COUNT 16.9 TH/MM3 (4.0-11.0)
[2016-04-02 13:51] LABS: HEMO FLAGS DIFF FINAL
[2016-04-02 14:02] LABS: ANION GAP 13 MEQ/L (5-15); BICARBONATE 29.2 MEQ/L (21.0-32.0); BLOOD UREA NITROGEN 16 MG/DL (7-18); CHLORIDE 91 MEQ/L (98-107); POTASSIUM 3.1 MEQ/L (3.5-5.1); SODIUM (NA) 133 MEQ/L (136-145)
[2016-04-02 14:10] LABS: ALKALINE PHOSPHATASE 61 U/L (45-117); ALT (GPT) 31 U/L (10-53); AST (GOT) 19 U/L (15-37); GLOMERULAR FILTRATION RATE 92 ML/MIN (>89); TOTAL BILIRUBIN ADULT 0.9 MG/DL (0.2-1.0)
[2016-04-02 14:11] LABS: BHCG SCREEN QUALITATIVE LESS THAN 1 MIU/ML (0-5)
[2016-04-02] MEDS ORDERED: MAGNESIUM SULFATE 1 GM PREMIX 100 ML IV ONE (14:15)
[2016-04-02] MEDS ORDERED: POTASSIUM CHLOR 20 MEQ PREMIX 100 ML IV ONE (14:15)
[2016-04-02 14:30] VITALS: BP 127/70; PULSE 89; RESP 18; O2SAT 100
[2016-04-02] MEDS ORDERED: DIAZEPAM 5 MG TAB PO ONE (15:15)
[2016-04-02] MEDS ORDERED: ZOFR4TAB3 SL (16:03)
[2016-04-02 16:10] VITALS: BP 147/86; PULSE 98; RESP 18; O2SAT 98
[2016-04-02] MEDS ORDERED: POTASSIUM CHLORIDE 20 MEQ CONTROLLED RELEASE TAB PO ONE (16:15)
== END 2016-04-02 16:15 | disposition home or self-care (01) ==
LOC: PHED 11:05
DX: G43.A0 Cyclical vomiting, in migraine, not intractable (principal); D72.829 Elevated white blood cell count, unspecified; E87.6 Hypokalemia
CPT/HCPCS: 80053; 84703; 85025; 96361; 96365; 96375; 99284; J1885; J2405; J3475; J3480; J7030